=== PATIENT | male | born 1955 ===

== ENCOUNTER 2016-12-21 10:23 | Day surgery (SDC) | payer MEDICARE ==
[2016-12-21] MEDS ORDERED: Lactated Ringer's 500 ML IV ONE (11:30)
[2016-12-21 11:52] VITALS: TEMP 97
[2016-12-21] MEDS ORDERED: Propofol 10 mg/ml Inj (20 ML) ONE (12:33)
[2016-12-21 13:18] VITALS: BP 110/67; PULSE 87; RESP 16; O2SAT 98
== END 2016-12-21 13:18 | disposition home or self-care (01) ==
LOC: H.ENDO 10:23 → EDBD 10:23 → H.ENDO 13:18
PROVIDERS: ATTEND Internal Medicine Gastroenterology
DX: Z12.11 Encounter for screening for malignant neoplasm of colon (principal); K64.8 Other hemorrhoids
CPT/HCPCS: 45378; J2704; J7120